=== PATIENT | female | born 1950 | race Asian ===

== ENCOUNTER → 2017-03-25 | Outpatient (CLI) | payer OTHER | END | disposition home or self-care (01) | LOC: CFH 10:58 | PROVIDERS: ATTEND Family Medicine | DX: Z12.31 Encounter for screening mammogram for malignant neoplasm of breast (principal) | CPT/HCPCS: 77063; G0202 ==

== ENCOUNTER → 2020-02-23 | Outpatient (CLI) | payer BC | END | disposition home or self-care (01) | LOC: CVU 12:16 | PROVIDERS: ATTEND Family Medicine | DX: I11.9 Hypertensive heart disease without heart failure (principal); Z86.79 Personal history of other diseases of the circulatory system | CPT/HCPCS: 93306; 93356 ==

== ENCOUNTER → 2020-03-07 | Outpatient (CLI) | payer BC | END | disposition home or self-care (01) | LOC: CFH 09:13 | PROVIDERS: ATTEND Family Medicine | DX: M85.88 Other specified disorders of bone density and structure, other site (principal); N95.9 Unspecified menopausal and perimenopausal disorder | CPT/HCPCS: 77080 ==